=== PATIENT | female | born 1980 | race Caucasian/White ===

== ENCOUNTER 2023-06-23 07:44 | Inpatient (IN) ==
--- OUTSIDE RECORDS SUMMARY | 2023-06-23 08:03 | External Medical Summary | Summary of Care ---
Author Name Unknown Organization [facility] Address [address] [facility] [address] Phone [phone] Care Team Providers Care Planning Management It Specialist Name Role Phone Cristina Magaña MD Primary Care Provider [phone] Reason for Visit * Reason Comments Return Visit Encounter Details Date Type Department Care Team (Late st Contact Info) Description 06/19/2023 10:00 AM EST Office Visit Gynecology/Obstetric s Arun'elvira Tomas [address] [place] [address] Suni Mullins CRNP [address] [place] [address] [place] Non Stress Tests [place] [address] [place] [address] Antepartum multigravida of advanced maternal age*; Cystic fibrosis carrier; resulting from assisted reproductive technology, antepartum; Anxiety disorder affecting , antepartum; Low lying placenta, antepartum; High-risk in third trimester; History of delivery of macrosomal infant Allergies Active Allergy Reactions Criticality Noted Date Comments Codeine Nausea/vomiting 03/16/2018 sensitivity Pollen 03/16/2018 documented as of this encounter (statuses as of 06/19/2023) Medications Medication Sig Dispensed Refills Start Date End Date Status Robbins-3 Fatty Acids (FISH OIL) 1200 MG CPDRIndications:pren atal DHA 830mg Take by mouth. Indications: DHA 830mg 0 Active 28-0.8 MG Oral Tablet Take by mouth. 0 Active Loratadine 10 MG Oral Tablet (Claritin) Take by mouth. 0 Active Fluticasone Propionate 50 MCG/ACT Nasal Suspension Administer 1 [place] into nostril in the morning. 0 Active Escitalopram Oxalate 10 MG Oral Tablet (Lexapro) Take 2 Tablets by mouth in the morning. 0 Active CoQ10 200 MG Oral Capsule Take by mouth. 0 Active Magnesium 400 MG Oral Tablet Take by mouth. 0 Active B-2-400 400 MG Oral Capsule (Riboflavin) Take 1 Capsule by mouth in the morning. 0 Active Calcium Carbonate Antacid 500 MG Oral Tablet Chewable (Tums) Take 1 Tablet by mouth in the morning. 0 Active Breast PumpIndications:Caitlyn st feeding status of mother DARRIN 06/25/23, double electric pump, Z39.1 1 Each 0 05/14/2023 Active documented as of this encounter (statuses as of 06/19/2023) Active Problems Problem Noted Date Diagnosed Date depression 04/14/2023 Gastrointestinal hemorrhage 04/14/2023 Adjustment insomnia 04/14/2023 Malpresentation of fetus 04/14/2023 High-risk 03/10/2023 History of delivery of macrosomal infant 023 Overview: 1st child 9lb 12oz Common migraine without aura 02/26/2023 DEMETRIS (generalized anxiety disorder) 02/25/2023 Low lying placenta, antepartum 02/14/2023 Overview: 05/09/23 @ 33w2d, MFM: They strongly desire a vaginal delivery if possible, so we will plan to reassess for resolution (or at minimum improvement to a low-lying placenta over 1 cm from the os) in about 3 weeks. Given the minimal change in interval appearance since the last exam and in light of some of the logistical concerns with being from [facility], they would like to arrange for delivery planning in anticipation of needing a at 36-37 weeks. I called L&D and arranged for an AM at [facility] on 06/05/23 at 37w1d. If the placental location changes on follow-up exam, timing can be modified as needed. Last Assessment & Plan: She presents for reassessment of placental position secondary to AMA, IVF, and a previously noted placenta previa. We reviewed the results of today's ultrasound. The amniotic fluid amount appears normal. A BPP is 8/8. On transvaginal evaluation, the placenta is anterior and low-lying. The inferior placental margin measures over 1 cm from the internal os. We discussed the improvement in placenta position, now categorized as a low- lying placenta. If the placental edge is at 1cm or greater from internal os (without vaginal bleeding), we discussed that current evidence supports consideration for a trial labor and may continue to 41 weeks. We will plan to cancel the scheduled . We reviewed that most patients with a low-lying placenta are able to deliver vaginally, though there may be a slightly increased risk for bleeding complications that can lead to a . We reviewed some associated risks with a . They had some questions reg.arding delivery location. I recommended that they discuss this further with their OB providers, who will be more familiar with available resources locally Anxiety disorder affecting , antepartum 12/17/2022 Overview: Anxiety Managed with Lexapro 10 mg daily Reports a stable mood in . Denies any suicidal or homicidal ideation. Reports she has a good support system at home. Last Assessment & Plan: Continue lexapro, no concerns reported today. Cystic fibrosis carrier 11/25/2022 Overview: (this is a donor embryo) resulting from ass gripNote reproductive technology, antepartum 11/25/2022 Overview: IVF via donor embryo Egg donor age 35 Embryo PGT tested: euploid / normal NIPT: low risk MFM limited anatomy scan scheduled 02/14/2023 MFM anatomy to be scheduled Maternal Medicine (MFM) level II anatomy scan at 19-20 weeks. echocardiography by MFM at 22-24 weeks gestation for patients who have had IVF. MFM growth evaluation if indicated by other existing or maternal conditions. Recommend ultrasound for growth at 28-32 weeks. Recommend weekly NSTs to begin at 36 weeks. Consider delivery at 39 weeks. Last Assessment & Plan: CONSIDERATIONS: Assisted reproductive technology (ART) includes in vitro fertilization (IVF), intrauterine insemination (IUI), Gamete intrafallopian transfer (GIFT) and Zygote intrafallopian transfer (ZIFT). Discussed with patient that pregnancies after ART are associated with increased risk for spontaneous , ectopic (higher with ZIFT for history of tubal factor infertility), multiple gestation and low weight. Discussed with patient that even for law ART pregnancies, the relative risk of complications such as growth restriction, preeclampsia, prematurity, placental abruption, and mortality are increased, although clearly not independent of infertility itself. Neurodevelopmental outcomes of children conceived by ART appear to be normal. Risk of congenital abnormalities is increased by about 1/3 over the population baseline risk of 2-4%. There is approximately 1% of cardiac defects associated with pregnancies resulting from IVF. This is likely due to the fertilization process. RECOMMENDATIONS: Recommend Maternal Medicine (MFM) level II anatomy scan at 19-20 weeks. Recommend echocardiography by MFM at 22-24 weeks gestation for patients who have had IVF. Recommend MFM growth evaluation if indicated by other existing or maternal conditions. Recommend ultrasound for growth at 28-32 weeks. Recommend weekly NSTs to begin at 36 weeks. Consider delivery at 39 weeks. anxiety 11/25/2022 Last Assessment & Plan: States she had severe pp anxiety with son in 2019, tx'd with Lexapro 10mg Stopped prior to embryo transfer, plans to resume after 1st trimester. Chronic constipation 08/13/2022 Allergies 08/13/2022 Acute insomnia 08/13/2022 INFORMATION 08/11/2018 Overview: 08/11/2018 Tdap Vaccine administered per clinic protocol. Deya Anguiano RN Antepartum multigravida of advanced maternal age 1003/16/2018 Overview: Patient will be age 43 yo at delivery Donor embryo / age of donor 35 yo PGT: normal / euploid NIPT: Qnatal - low risk Genetic consult completed 12/04/2022 Last Assessment & Plan: PGT-A euploid, cffDNA low risk. Estimated Date of Delivery Comme nts Yes 06/25/2023 Based on Other B asis, embryo transfer 10-07-22 with DARRIN 06-25-23 documented as of this encounter (statuses as of 06/19/2023) Resolved Problems Problem Noted Date Diagnosed Date Resolved Date History of ectopic 09/10/2017 03/10/2023 Overview: August 2017 Had methotrexate x 3 Encounter for fertility planning 07/25/2017 07/25/2017 Encounter for assisted repro ductive fertility cycle 07/25/2017 11/01/2018 Overview: IUI, [place] Progesterone suppositories until 9weeks Same sex relationship, used sperm donor documented as of this encounter (statuses as of 06/19/2023) Immunizations Name Administration Dates Next Due RSV Vac., Bivalent, Perfusion F, Pf,0.5 Ml (Abry svo) 05/19/2023 Seasonal Influenza, PF, 6 M & above, IM , (FluLaval or Fluzone) 03/01/2023,03/16/2018 TDAP (age 10 and older)(Boostrix) 04/14/2023,05/2019 documented as of this encounter Social History Tobacco Use Types Packs/Day Years Used Date Smoking Tobacco: Never Smokeless Tobacco: Never Alcohol Use Standard Drinks/Week Comments No 0 (1 standard drink = 0.6 oz pur e alcohol) PHQ-2 Answer Date Recorded PHQ-2 Score 1 12/11/2018 Hunger Vital Sign Answer Date Recorded Within the past 12 months, y ou worried that your food would run out before you got the money to buy more. Never true 11/07/19 23 Within the past 12 months, t he food you bought just didn't last and you didn't have money to get more. Never true 11/06/2022 Dawson Depression Scale Answer Date Recorded [place] Depression Scale Total 4 05/19/2023 The thought of harming myself has occurred to me . Never 05/19/2023 Estimated Date of Delivery Comme nts Yes 06/25/2023 Based on Other B asis, embryo transfer 10-07-22 with DARRIN 06-25-23 Sex and Gender Information Value Date Recorded Sex Assigned at Female 11/06/2022 10:09 AM EDT Gender Identity Female 11/06/2022 10:09 AM EDT Sexual Orientation Queer 11/06/2022 10 :09 AM EDT Job Start Date Occupation Industry Not on file Not on file Not on file documented as of this encounter Last Filed Vital Signs Vital Sign Reading Time Taken Comments Blood Pressure 98/64 06/19/2023 9:35 AM EST Pulse - - Temperature - - Respiratory Rate - - Oxygen Saturation - - Inhaled Oxygen Concentration - - Weight 93.4 kg (206 lb) 06/19/2023 9:35 AM EST Height 177.8 cm (5' 10") 06/19/2023 9:35 AM EST Body Mass Index 29.56 06/19/2023 9:35 AM EST documented in this encounter Progress Notes * Julita Carlos LPN - 06/19/2023 9:35 AM EST 39w1d Pt would like cervix checked * Suni Mullins CRNP - 06/19/2023 9:31 AM EST ASSESSMENT assessment with Non-stress Test completed on 06/19/2023 at 39.1weeks gestation for indication of AMA, IVF heart baseline: 140 bpm Variability: Moderate Decelerations: absent Accelerations: present Contractions: None NST start time: 1032 NST stop time: 1056 NST strip reviewed, interpreted, and approved by OB provider, GENNARO Sandoval . NST strip stored in clinic storage file Has questions regarding IOL, explained this would need to be discussed at time of induction, as mayvary based on provider and pt situation. Some irregular contractions, no bleeding. IOL next week. GENNARO Sandoval documented in this encounter Plan of Treatment Upcoming Encounters Date Type Department Care Team (Late st Contact Info) Description 06/23/2023 7:30 AM EST Office Visit Non [facility], Operating Room, [facility] [address] [facility] [place] [address] Atul Wakefield MD [address] [place] [address] 07/14/2023 10:30 AM EST Telemedicine Gynecology/Obstetrics [facility] [address] [place] [address] Rylee Palacio CRNP [address] [place] [address] 08/04/2023 10:30 AM EST Office Visit Gynecology/Obstetrics [facility] [address] [place] [address] Rylee Palacio CRNP [address] [place] [address] Health Maintenance Due Date Last Done Comments Diabetes Screening 1978 Hepatitis B (1 of 3 - 3-dose series) 1978 Lipid Panel 1978 Mammogram 2018 Depression Screening 12/12/2019 12/11/2018 COVID-19 Vaccine ( season) 2023 09/09/2020, 08/19/2020 Cologuard 2023 Colonoscopy 2023 06/02/1999 Colorectal Cancer Screening 2023 Fecal Occult Blood Test 2023 Sigmoidoscopy 2023 Pap Smear 11/25/2025 11/25/2022, 03/16/2018 Cervical Cancer Screening 11/26/2027 HPV/Co-Test 11/26/2027 11/25/2022 DTaP,Tdap,and Td Vaccines (3 - Td or Tdap) 04/14/2033 04/14/2023, 08/11/2018 Influenza Vaccine (FLU shot) Completed , 03/16/2018, 03/02/2018, Additional history exists GARDASIL-HPV IMMUNIZATION SERIES Aged Out No longer eligible based on patient's age to complete this topic MENINGOCOCCAL (MENACTRA/MENVEO) Aged Out No longer eligible based on patient's age to complete this topic Pneumococcal Vaccine: Pediatrics (0 to 5 Years) and At-Risk Patients (6 to 64 Years) Aged Out No longer eligible based on patient's age to complete this topic documented as of this encounter Medical Devices Not on filedocumented as of this encounter Visit Diagnoses Diagnosis Antepartum multigravida of advanced maternal age- Primary Cystic fibrosis carrier Cystic fibrosis gene carrier resulting from assisted reproductive technology, antepartum Anxiety disorder affecting , antepartum Low lying placenta, antepartum High-risk in third trimester History of delivery of macrosomal infant documented in this encounter Advance Directives Latest Code Status on File Code Status Date Activated Date Inactivated Comments Full Code 10/31/2018 11:57 PM 11/03/2018 6:47 PM This o rder reflects the patients wishes and were consensually agreed upon. Care Teams Planning Management It Specialist Relationship Specialty Start Date End Date Cristina Magaña MD [address] [place] [id number] PCP - General Family Medicine 10/18/22 documented as of this encounter
--- OUTSIDE RECORDS SUMMARY | 2023-06-23 08:03 | External Medical Summary | Summary of Care ---
Author Name Unknown Organization [facility] Address [address] [place] [address] Phone [phone] Care Team Providers Care Blogs Manager Name Role Phone Cristina Magaña MD Primary Care Provider [phone] Reason for Visit * Reason Comments Return Visit Non Stress Test Encounter Details Date Type Department Care Team (Late st Contact Info) Description 06/12/2023 10:15 AM EST Office Visit Gynecology/Obstetric s Arun'elvira Tomas [address] [facility] [place] [address] Wandy Elder, [facility] [address] [place] [address] [place] Non Stress Tests [place] [address] [facility] [place] [address] Antepartum multigravida of advanced maternal age*; Cystic fibrosis carrier; resulting from assisted reproductive technology, antepartum; Anxiety disorder affecting , antepartum; Low lying placenta, antepartum; High-risk in third trimester; History of delivery of macrosomal infant Allergies Active Allergy Reactions Criticality Noted Date Comments Codeine Nausea/vomiting 03/16/2018 sensitivity Pollen 03/16/2018 documented as of this encounter (statuses as of 06/12/2023) Medications Medication Sig Dispensed Refills Start Date End Date Status [place]-3 Fatty Acids (FISH OIL) 1200 MG CPDRIndications:pren atal DHA 830mg Take by mouth. Indications: DHA 830mg 0 Active 28-0.8 MG Oral Tablet Take by mouth. 0 Active Loratadine 10 MG Oral Tablet (Claritin) Take by mouth. 0 Active Fluticasone Propionate 50 MCG/ACT Nasal Suspension Administer 1 [place] into nostril in the morning. 0 Active [...] mouth in the morning. 0 Active Breast PumpIndications:[place] st feeding status of mother DARRIN 06/25/23, double electric pump, Z39.1 1 Each 0 05/14/2023 Active documented as of this encounter (statuses as of 06/12/2023) Active Problems Problem Noted Date Diagnosed Date depression 04/14/2023 Gastrointestinal hemorrhage 04/14/2023 Adjustment insomnia 04/14/2023 Malpresentation of fetus 04/14/2023 High-risk 03/10/2023 History of delivery of macrosomal 023 Overview: 1st child 9lb 12oz Common [...] of the logistical concerns with being from [facility], they would like to arrange for delivery planning in anticipation of needing a at 36-37 weeks. I called L&D and arranged for an AM at [facility] on 06/05/23 at 37w1d. If the placental [...] is a donor embryo) resulting from ass [employer] reproductive technology, antepartum 11/25/2022 Overview: IVF via [...] as of this encounter (statuses as of 06/12/2023) Resolved Problems Problem Noted Date Diagnosed Date Resolved Date History of ectopic 09/10/2017 03/10/2023 Overview: August 2017 Had methotrexate x 3 Encounter for fertility planning 07/25/2017 07/25/2017 Encounter for assisted repro ductive fertility cycle 07/25/2017 11/01/2018 Overview: IUI, [place] Progesterone suppositories until 9weeks Same sex relationship, used sperm donor documented as of this encounter (statuses as of 06/12/2023) Immunizations Name Administration Dates Next Due RSV [...] money to get more. Never true 11/06/2022 [place] Depression Scale Answer Date Recorded [place] Depression Scale Total 4 05/19/2023 The thought [...] Sign Reading Time Taken Comments Blood Pressure 96/68 06/12/2023 9:41 AM EST Pulse - - Temperature - - Respiratory Rate - - Oxygen Saturation - - Inhaled Oxygen Concentration - - Weight 93.4 kg (206 lb) 06/12/2023 9:41 AM EST Height 177.8 cm (5' 10") 06/12/2023 9:41 AM EST Body Mass Index 29.56 06/12/2023 9:41 AM EST documented in this encounter Progress Notes * Wandy Elder CNM - 06/12/2023 10:11 AM EST RASHMI at 38w1d Feeling well with no concerns. Reports losing mucous this morning, no fluid leakage, no bleeding. Occasional BH, no RUC. Questions answered regarding induction. Aware of IOL. Hao's still shows vertex presentation today. Labor warning s/s reviewed. Patient has f/u in one week. ASSESSMENT assessment with Non-stress Test completed on 06/12/2023 at 38.1weeks gestation for indication of advanced maternal age and IVF conception heart baseline: 130 bpm Variability: Moderate Decelerations: absent Accelerations: present Contractions: None NST start time: 0945 NST stop time: 1008 NST strip reviewed, interpreted, and approved by OB provider, Wandy Elder CNM. NST strip stored in clinic storage file * Vicky Knapp LPN - 06/12/2023 9:56 AM EST 38w1d NST, RASHMI Was at L+D over the weekend with prodromal labor. Denies concerns today. documented in this encounter Plan of Treatment Upcoming Encounters Date Type Department Care Team (Late st Contact Info) Description 06/19/2023 10:00 AM EST Office Visit Gynecology/Obstetrics ArunOlgaelvira Tomas [address] [place] [address] Suni Mullins CRNP [address] [place] [address] [place] Tomas Stress Tests [place] [address] [place] [address] 06/23/2023 7:30 AM EST Office Visit Non [facility], Operating Room, [place] [address] [place] [facility] [place] [address] Atul Wakefield MD [address] [place] [address] 07/14/2023 10:30 AM EST Telemedicine Gynecology/Obstetrics Diasboo Tomas [address] [place] [address] Rylee Palacio CRNP [address] [place] [address] 08/04/2023 10:30 AM EST Office Visit Gynecology/Obstetrics Diasboo Tomas [address] [place] [address] Rylee Palacio CRNP [address] [place] [address] Health Maintenance Due Date Last Done Comments [...] third trimester History of delivery of macrosomal documented in this encounter Advance Directives Latest Code Status on File Code Status Date Activated Date Inactivated Comments Full Code 10/31/2018 11:57 PM 11/03/2018 6:47 PM This o rder reflects the patients wishes and were consensually agreed upon. Care Teams Blogs Manager Relationship Specialty Start Date End Date Cristina Magaña MD [address] [place] [address] PCP - General Family Medicine 10/18/22 documented as of this encounter
[2023-06-23] MEDS ORDERED: LIDOCAINE 1% LOCAL 20 ML VIAL INFIL PRN (08:04)
[2023-06-23] MEDS ORDERED: OXYTOCIN 30 UNITS/NSS 30 UNITS/500 ML BAG IV PRN ×3 (08:04→22:40)
[2023-06-23 08:41] LABS: Hematocrit (blood only) 38.1 % (37.0-47.0); Hemoglobin 12.8 g/dl (12.0-16.0); Mean Corpuscular Hemoglobin 32.2 pg (25.0-34.0); Mean Corpuscular Hgb Conc 33.6 g/dL (32.0-36.0); Mean Corpuscular Volume 95.7 fL (80.0-100.0); Mean Platelet Volume 10.8 fL (9.4-12.4); Platelet Count 153 K/uL (130-400); RDW Coefficient of Variation 13.2 % (11.5-14.5); RDW Standard Deviation 46.6 fL (36.4-46.3); Red Blood Count 3.98 M/uL (4.20-5.40); White Blood Count 8.89 K/ul (4.8-10.8)
--- NOTE | 2023-06-23 09:07 | History & Physical Report ---
Date of Service June 23, 2023 Assessment & Plan (1) AMA (advanced maternal age) multigravida 35+: (2) Conceived by in vitro fertilization: Plan: 43-year-old -0-1-1 at 39+ weeks presenting today for induction of labor at term, Vital signs stable afebrile, heart rate reassuring, GBS negative, Cervix favorable, Plan to admit, labs, oxytocin per protocol and then AROM when able, anticipate vaginal delivery, Discussed the findings and what to expect, All questions were answered. (3) Anxiety during in third trimester, antepartum: Admission and Anticipated Discharge Date Admission Date: June 23, 2023 History of Present Illness Primary Care Provider: Cristina Magaña MD Patient is a 43-year-old -0-1-1 at 39+ weeks who was scheduled for induction of labor at term. She denies regular contractions, leakage of fluid, vaginal bleeding, fever chills, abdominal pain, headaches or change in her vision. She reports good movements. Her has been complicated by, 1. IVF with embryo donor younger than 35 years, NIPT low risk, 2. Anxiety during , take escitalopram 20 mg a day, 3. History of low-lying placenta, cleared by MFM for vaginal delivery, GBS negative Allergies Allergy/AdvReac Type Severity Reaction Status Date / Time codeine AdvReac Nausea Verified 06/09/23 04:42 Home Medications Medication Instructions Recorded Confirmed Type calcium carbonate 500 mg calcium 1 mg PO DAILY 06/09/23 06/09/23 History (1,250 mg) chewable tablet coQ10 (ubiquinol) 200 mg capsule 200 mg PO DAILY 06/09/23 06/09/23 History escitalopram oxalate 20 mg tablet 20 mg PO DAILY 06/09/23 06/09/23 History (Lexapro) fluticasone furoate 50 50 mcg inhalation DAILY 06/09/23 06/09/23 History mcg/actuation blister powder for inhalation loratadine 10 mg chewable tablet 10 mg PO DAILY 06/09/23 06/09/23 History (Claritin) magnesium 500 mg tablet 400 mg PO DAILY migraines 06/09/23 06/09/23 History kplkibhh-[id number]-Yr-FA 1 mg 1 tab PO DAILY 06/09/23 06/09/23 History tablet riboflavin (vitamin B2) 400 mg PO DAILY 06/09/23 06/09/23 History Patient History Medical History Anxiety Social History Smoking Status: Never smoker Hx Alcohol Use: No Hx Substance Use: No Preferred Language: [place] Communication Ability: Effective Research Director Required: No Beliefs That Will Affect Care: None marital status: Current Living Situation: Spouse Current Living Situation Comment: son and Feels Safe at Home: Yes Safety Concerns: Feels Safe At This Time Assistive Devices: None VB NET PROGRAMMER History No history of STDs, no history of chlamydia, gonorrhea, herpes Review of Systems as per Subjective / HPI Physical Exam Constitutional: WD/WN, vitals as above well developed, well nourished and comfortable Gastrointestinal (Abdomen): normal bowel sounds, soft, nontender, no hepatosplenomegaly (Gravid) Genitourinary: normal external appearance OB Exam Abdomen: + vertex Manual OB Exam: + cervical dilation 3 cm (3-4), + cervical effacement 30% and + station high (-3, posterior) OB Exam Monitor Tracing: + external uterine monitor used and + category I Results & Data Vital Signs (Past 12 Hours) Vital Signs Temp Pulse Resp BP 06/23/23 08:27 36.4 C L 20 06/23/23 08:21 68 105/66 (1) AMA (advanced maternal age) multigravida 35+ Trimester: third trimester Qualified Code(s): O09.523 - Supervision of elderly multigravida, third trimester
[2023-06-23] MEDS: LACTATED RINGER'S 1,000 ML IV PRN ×3 (09:30→19:26)
--- NOTE | 2023-06-23 15:01 | Obstetrical Progress Note ---
Date of Service June 23, 2023 Assessment & Plan Admission and Anticipated Discharge Date Admission Date: June 23, 2023 Subjective Patient is reevaluated. Feels well, no complaints. Declined pain meds and doing well with breathing techniques. FHR categ I Bennett ctxs q-2-4 min, Oxytocin at 14 miu/ min VE: 4-5 cm/ 50%/ -2, AROM'ed meconium satined, light Continue to monitor Results & Data Vital Signs (Past 12 Hours) Vital Signs Temp Pulse Resp BP 06/23/23 13:38 59 L 06/23/23 13:38 107/62 06/23/23 13:25 70 06/23/23 13:25 102/55 L 06/23/23 12:29 62 06/23/23 12:29 105/61 06/23/23 11:36 87 06/23/23 11:36 98/61 L 06/23/23 10:38 71 06/23/23 10:38 99/58 L 06/23/23 09:32 63 06/23/23 09:32 104/68 06/23/23 08:27 36.4 C L 20 06/23/23 08:21 68 105/66
--- NOTE | 2023-06-23 16:29 | Obstetrical Progress Note ---
Date of Service June 23, 2023 Assessment & Plan Admission and Anticipated Discharge Date Admission Date: June 23, 2023 Subjective Patient is reevaluated. FHR had decels while standing VE: 5-6 cm/ 50%, -3, posterior She was placed on her side and pitocin was stopped, IVF bolus and nasal O2 were started. FHR recovered quickly to 130's, with good variability. Continue to monitor closely. Results & Data Vital Signs (Past 12 Hours) Vital Signs Temp Pulse Resp BP Pulse Ox 06/23/23 16:21 97 06/23/23 16:21 62 06/23/23 16:08 67 06/23/23 16:08 112/58 L 06/23/23 13:38 59 L 06/23/23 13:38 107/62 06/23/23 13:25 70 06/23/23 13:25 102/55 L 06/23/23 12:29 62 06/23/23 12:29 105/61 06/23/23 11:36 87 06/23/23 11:36 98/61 L 06/23/23 10:38 71 06/23/23 10:38 99/58 L 06/23/23 09:32 63 06/23/23 09:32 104/68 06/23/23 08:27 36.4 C L 20 06/23/23 08:21 68 105/66
[2023-06-23] MEDS ORDERED: fentaNYL citrate PF 100 MCG/2 ML VIAL ONE (17:49)
[2023-06-23] MEDS ORDERED: ePHEDrine sulfate 50 MG/ML AMP ONE (17:49)
[2023-06-23] MEDS ORDERED: SODIUM CHLORIDE 0.9% PF INJ 10 ML VIAL ONE (17:49)
[2023-06-23] MEDS ORDERED: fentANYL 2 MCG/ML BUPIVacaine 0.125%-NSS 100ML BAG ONE (17:49)
[2023-06-23] MEDS ORDERED: BUPIVACAINE 0.25% PF 30 ML VIAL ONE (17:49)
[2023-06-23] MEDS ORDERED: LIDOCAINE 2%/EPINEPHRINE 1:200,000 20 ML PF ONE (17:50)
--- NOTE | 2023-06-23 20:35 | Obstetrical Progress Note ---
Date of Service June 23, 2023 Assessment & Plan Admission and Anticipated Discharge Date Admission Date: June 23, 2023 Subjective Patient had epidural for pain and soon after was found to be fully dilated and pushed for about 50 minutes. Unable to bring head more than +2 FHR categ I Discussed continue with pushing vs labor Decided to labor down Continue to monitor closely. Results & Data Vital Signs (Past 12 Hours) Vital Signs Temp Pulse Resp BP Pulse Ox O2 Del Method 06/23/23 20:32 95 06/23/23 20:32 74 06/23/23 20:28 94 06/23/23 20:28 84 06/23/23 20:27 95 06/23/23 20:27 84 06/23/23 20:22 97 06/23/23 20:22 78 06/23/23 20:21 89 L 06/23/23 20:21 79 06/23/23 20:17 78 L 06/23/23 20:17 86 06/23/23 20:15 18 06/23/23 20:15 18 06/23/23 20:15 85 L 06/23/23 20:15 78 06/23/23 20:12 97 06/23/23 20:12 67 06/23/23 20:08 94 06/23/23 20:08 81 06/23/23 20:08 107/59 L 06/23/23 20:07 94 06/23/23 20:07 91 H 06/23/23 20:02 98 06/23/23 20:02 93 H 06/23/23 20:01 90 06/23/23 20:01 74 06/23/23 20:00 20 06/23/23 20:00 20 06/23/23 19:56 98 06/23/23 19:56 94 H 06/23/23 19:55 88 L 06/23/23 19:55 69 06/23/23 19:51 97 06/23/23 19:51 78 06/23/23 19:51 82 06/23/23 19:51 98/56 L 06/23/23 19:46 98 06/23/23 19:46 90 06/23/23 19:43 93 06/23/23 19:43 67 06/23/23 19:41 98 06/23/23 19:41 69 06/23/23 19:36 99 06/23/23 19:36 59 L 06/23/23 19:36 93/55 L 06/23/23 19:31 97 06/23/23 19:31 74 06/23/23 19:30 18 06/23/23 19:30 18 06/23/23 19:26 98 06/23/23 19:26 67 06/23/23 19:21 36.5 C 18 06/23/23 19:21 Room Air 06/23/23 19:21 98 06/23/23 19:21 66 06/23/23 19:21 91/55 L 06/23/23 19:20 18 06/23/23 19:20 36.5 C 18 06/23/23 19:19 66 06/23/23 19:19 94/53 L 06/23/23 19:17 80 06/23/23 19:17 98/55 L 06/23/23 19:16 98 06/23/23 19:16 68 06/23/23 19:15 73 06/23/23 19:15 89/54 L 06/23/23 19:13 81 06/23/23 19:13 97/56 L 06/23/23 19:11 99 06/23/23 19:11 67 06/23/23 19:11 77 06/23/23 19:11 101/55 L 06/23/23 19:10 82 06/23/23 19:10 103/54 L 06/23/23 19:07 68 06/23/23 19:07 97/57 L 06/23/23 19:06 98 06/23/23 19:06 76 06/23/23 19:05 83 06/23/23 19:05 102/60 06/23/23 19:03 63 06/23/23 19:03 100/58 L 06/23/23 19:01 99 06/23/23 19:01 68 06/23/23 19:01 95/52 L 06/23/23 18:59 65 06/23/23 18:59 101/55 L 06/23/23 18:57 63 06/23/23 18:57 100/61 06/23/23 18:56 97 06/23/23 18:56 67 06/23/23 18:55 67 06/23/23 18:55 94/55 L 06/23/23 18:53 72 06/23/23 18:53 94/52 L 06/23/23 18:51 97 06/23/23 18:51 65 06/23/23 18:51 95/51 L 06/23/23 18:49 70 06/23/23 18:49 91/53 L 06/23/23 18:47 66 06/23/23 18:47 94/50 L 06/23/23 18:46 98 06/23/23 18:46 66 06/23/23 18:45 70 06/23/23 18:45 92/54 L 06/23/23 18:43 65 06/23/23 18:43 96/53 L 06/23/23 18:41 96 06/23/23 18:41 70 06/23/23 18:41 71 06/23/23 18:41 104/55 L 06/23/23 18:36 96 06/23/23 18:36 66 06/23/23 18:31 97 06/23/23 18:31 65 06/23/23 18:26 97 06/23/23 18:26 75 06/23/23 18:21 98 06/23/23 18:21 73 06/23/23 18:16 96 06/23/23 18:16 69 06/23/23 18:11 98 06/23/23 18:11 65 06/23/23 18:06 99 06/23/23 18:06 75 06/23/23 18:01 97 06/23/23 18:01 66 06/23/23 17:56 98 06/23/23 17:56 64 06/23/23 17:51 97 06/23/23 17:51 65 06/23/23 17:46 98 06/23/23 17:46 68 06/23/23 17:45 71 06/23/23 17:45 109/72 06/23/23 17:41 99 06/23/23 17:41 77 06/23/23 17:36 99 06/23/23 17:36 76 06/23/23 17:31 97 06/23/23 17:31 69 06/23/23 17:26 97 06/23/23 17:26 71 06/23/23 17:21 97 06/23/23 17:21 67 01/22/24 17:16 96 06/23/23 17:16 67 06/23/23 17:11 96 06/23/23 17:11 65 06/23/23 17:06 96 06/23/23 17:06 67 06/23/23 17:01 97 06/23/23 17:01 67 06/23/23 16:56 98 06/23/23 16:56 66 06/23/23 16:51 99 06/23/23 16:51 68 06/23/23 16:46 98 06/23/23 16:46 64 06/23/23 16:41 99 06/23/23 16:41 63 06/23/23 16:36 99 06/23/23 16:36 64 06/23/23 16:31 99 06/23/23 16:31 63 06/23/23 16:30 36.7 C 20 06/23/23 16:26 99 06/23/23 16:26 73 06/23/23 16:21 97 06/23/23 16:21 62 06/23/23 16:08 67 06/23/23 16:08 112/58 L 06/23/23 13:38 59 L 06/23/23 13:38 107/62 06/23/23 13:25 70 06/23/23 13:25 102/55 L 06/23/23 12:29 36.7 C 20 06/23/23 12:29 62 06/23/23 12:29 105/61 06/23/23 11:36 87 06/23/23 11:36 98/61 L 06/23/23 10:38 71 06/23/23 10:38 99/58 L 06/23/23 09:32 63 06/23/23 09:32 104/68
[2023-06-23] MEDS ORDERED: CALCIUM CARBONATE 500 MG CHEWABLE TAB PO PRN (21:25)
[2023-06-23] MEDS ORDERED: DIPHTHER/TETAN/PERTUS Vaccine (Tdap, Adol/Adult) 0.5mL IM ONE (22:40)
[2023-06-23] MEDS ORDERED: ACETAMINOPHEN 325 MG TAB PO PRN (22:40)
[2023-06-23] MEDS ORDERED: MEASLES, MUMPS & RUBELLA VIRUS VACCINE (MMR) VIAL SQ ONE (22:40)
[2023-06-23] MEDS ORDERED: HYDROCORTISONE ACETATE 25 MG SUPP PR PRN (22:40)
[2023-06-23] MEDS ORDERED: BENZOCAINE 20% SPRY 85 APPLN/85 GM CAN EXT PRN (22:40)
--- NOTE | 2023-06-23 22:49 | Delivery Summary ---
Vaginal Delivery Summary Date of Service June 23, 2023 Vaginal Delivery Summary Patient was found to be fully dilated and labored down for about an hour.. She pushed through 3 contractions and delivered the head in direct OP position without difficulty and then shoulders with minimal traction. There was a loose nuchal cord and it was reduced. The baby was handed off to the mother. The cord was clampedx2 and cut. The vagina and perineum were checked and found to have 1st degree perineal laceration and clitoral lacerations. Those were repaired with 2/0 vicryl and 3/0 Vicryl on SH needle respectively. The placenta was delivered spontaneously as intact and complete. The uterus was explored and found to be empty. EBL was 200 ml. The fundus was firm The baby was a viable female infant, Apgars 6/8, the weight is pending The mother and the baby tolerated the procedure well. No complications happened and I was present during whole procedure.
[2023-06-23] MEDS: IBUPROFEN 600 MG TAB PO PRN (23:39)
[2023-06-24] MEDS: IBUPROFEN 600 MG TAB PO PRN ×3 (05:07→16:59)
[2023-06-24 07:11] LABS: Hematocrit (blood only) 36.2 % (37.0-47.0); Hemoglobin 11.9 g/dl (12.0-16.0); Mean Corpuscular Hemoglobin 31.7 pg (25.0-34.0); Mean Corpuscular Hgb Conc 32.9 g/dL (32.0-36.0); Mean Corpuscular Volume 96.5 fL (80.0-100.0); Mean Platelet Volume 10.7 fL (9.4-12.4); Platelet Count 135 K/uL (130-400); RDW Coefficient of Variation 13.3 % (11.5-14.5); RDW Standard Deviation 47.4 fL (36.4-46.3); Red Blood Count 3.75 M/uL (4.20-5.40); White Blood Count 15.54 K/ul (4.8-10.8)
[2023-06-24] MEDS ORDERED: PRENATAL VITAMIN 1 TAB PO SCH (08:00)
[2023-06-24] MEDS ORDERED: FERROUS SULFATE 325 MG TAB PO SCH (08:00)
--- NOTE | 2023-06-24 08:04 | Anesthesia Procedure Note ---
Date of Service June 24, 2023 Anesthesia Post Epidural Note Vital Signs Vital Signs: Temp Pulse Resp BP Pulse Ox O2 Del Method 36.7 C 63 16 103/63 96 Room Air 06/24/23 07:20 06/24/23 07:20 06/24/23 07:20 06/24/23 07:20 06/24/23 07:20 06/24/23 07:20 Pain Intensity Bilateral Abdomen: Pain Intensity: 1 Perineal: Pain Intensity: 2 Notes Mental Status: alert / awake / arousable and participated in evaluation Nausea / Vomiting: adequately controlled Pain: adequately controlled Airway Patency, RR, SpO2: stable & adequate BP & HR: stable & adequate Hydration State: stable & adequate Neuraxial Anesthesia: was administered and sensory block resolved Anesthetic Complications: no major complications apparent and Pt Satisfied with anesthetic care Epidural: Removed without complications and With tip intact
[2023-06-24] MEDS ORDERED: ESCITALOPRAM OXALATE 20 MG TAB PO SCH (09:00)
[2023-06-24] MEDS: DOCUSATE SODIUM 100 MG CAP PO SCH ×2 (09:11→19:42)
--- NOTE | 2023-06-24 09:38 | Obstetrical Progress Note ---
Date of Service June 24, 2023 Subjective Ambulation: ambulating normally Voiding: no voiding problems Passing Gas:: Yes Diet Tolerance:: regular diet Lochia:: Small Feeding Type:: breast feeding Current Pain Level(1-10): 0 doing well. plans for d/c today Physical Exam Constitutional WD/WN, vitals as above Gastrointestinal (Abdomen) Inspection/Auscultation: abdomen normal to inspection fundus firm. abdomen soft and non-tender Musculoskeletal Extremities: extremities normal to inspection Skin no rashes, warm and dry Neurologic patellar DTR's 2+ bilat, sensation intact Psychiatric A+Ox3, euthymic affect Results & Data Vital Signs (Past 12 Hours) Vital Signs Temp Pulse Pulse Resp BP BP Pulse Ox 06/24/23 07:20 36.7 C 63 16 103/63 96 06/24/23 05:00 36.4 C L 64 18 117/78 97 06/24/23 01:00 36.4 C L 78 18 101/66 95 06/24/23 00:40 18 06/24/23 00:33 66 100/57 L 06/24/23 00:18 69 105/58 L 06/24/23 00:05 18 06/24/23 00:03 71 110/66 06/23/23 23:48 73 06/23/23 23:48 106/62 06/23/23 23:35 18 06/23/23 23:33 71 06/23/23 23:33 103/61 06/23/23 23:25 18 06/23/23 23:18 74 06/23/23 23:18 108/64 06/23/23 23:05 18 06/23/23 23:03 66 06/23/23 23:03 109/64 06/23/23 22:50 18 06/23/23 22:35 18 06/23/23 22:33 112/72 06/23/23 22:32 97 06/23/23 22:32 66 06/23/23 22:27 96 06/23/23 22:27 71 06/23/23 22:22 97 06/23/23 22:22 66 06/23/23 22:22 69 06/23/23 22:22 119/64 06/23/23 22:17 97 06/23/23 22:17 69 06/23/23 22:16 93 06/23/23 22:16 101 H 06/23/23 22:12 96 06/23/23 22:12 75 06/23/23 22:11 90 06/23/23 22:11 78 06/23/23 22:08 85 06/23/23 22:08 99/57 L 06/23/23 22:07 96 06/23/23 22:07 85 06/23/23 22:06 89 L 06/23/23 22:06 76 06/23/23 22:02 96 06/23/23 22:02 70 06/23/23 22:00 18 06/23/23 22:00 18 06/23/23 22:00 18 06/23/23 22:00 18 06/23/23 21:57 96 06/23/23 21:57 67 06/23/23 21:52 96 06/23/23 21:52 67 06/23/23 21:51 62 06/23/23 21:51 103/63 06/23/23 21:47 96 06/23/23 21:47 68 06/23/23 21:42 96 06/23/23 21:42 64 O2 Del Method 06/24/23 07:20 Room Air 06/24/23 05:00 Room Air 06/24/23 01:00 Room Air 06/24/23 00:40 06/24/23 00:33 06/24/23 00:18 06/24/23 00:05 06/24/23 00:03 06/23/23 23:48 06/23/23 23:48 06/23/23 23:35 06/23/23 23:33 06/23/23 23:33 06/23/23 23:25 06/23/23 23:18 06/23/23 23:18 06/23/23 23:05 06/23/23 23:03 06/23/23 23:03 06/23/23 22:50 06/23/23 22:35 06/23/23 22:33 06/23/23 22:32 06/23/23 22:32 06/23/23 22:27 06/23/23 22:27 06/23/23 22:22 06/23/23 22:22 06/23/23 22:22 06/23/23 22:22 06/23/23 22:17 06/23/23 22:17 06/23/23 22:16 06/23/23 22:16 06/23/23 22:12 06/23/23 22:12 06/23/23 22:11 06/23/23 22:11 06/23/23 22:08 06/23/23 22:08 06/23/23 22:07 06/23/23 22:07 06/23/23 22:06 06/23/23 22:06 06/23/23 22:02 06/23/23 22:02 06/23/23 22:00 06/23/23 22:00 06/23/23 22:00 06/23/23 22:00 06/23/23 21:57 06/23/23 21:57 06/23/23 21:52 06/23/23 21:52 06/23/23 21:51 06/23/23 21:51 06/23/23 21:47 06/23/23 21:47 06/23/23 21:42 06/23/23 21:42 Laboratory Results 06/23/23 06/23/23 06/24/23 08:17 22:16 06:53 WBC 8.89 15.54 H RBC 3.98 L 3.75 L Hgb 12.8 11.9 L Hct 38.1 36.2 L MCV 95.7 96.5 MCH 32.2 31.7 MCHC 33.6 32.9 RDW Std Deviation 46.6 H 47.4 H RDW Coeff of Elias 13.2 13.3 Plt Count 153 135 MPV 10.8 10.7 Cord ABG pH Cancelled Cord ABG pCO2 Cancelled Cord ABG pO2 Cancelled Cord ABG HCO3 Cancelled Cord ABG Base Excess Cancelled Cord ABG O2 Sat Cancelled Barometric Pressure Cancelled Blood Gas Comments Cancelled
[2023-06-24] MEDS ORDERED: bisacodyL 5 MG TABEC PO SCH (20:00)
[2023-06-25] MEDS ORDERED: bisacodyL 10 MG SUPP PR PRN
--- NOTE | 2023-06-25 06:40 | Anesthesiology Consultation ---
Date of Service June 25, 2023 Assessment & Plan Chart Review Chart Review: Patient NOT seen in Pre Admission Testing and Acceptable Risk for Labor Epidural Consults Requested none ASA ASA2 Proposed Anesthesia Anesthesia Type: Labor Epidural Risk / Benefits Reviewed With: PT / POA / Parent / Guardian, Accepts Plan and Informed Consent Obtained History Height/Weight Height: 5 ft 10 in Weight: 93.44 kg Allergies Allergy/AdvReac Type Severity Reaction Status Date / Time codeine AdvReac Nausea Verified 06/23/23 10:04 Medications Home Medications Medication Instructions Recorded Confirmed Last Taken escitalopram oxalate 20 mg tablet 20 mg PO DAILY 06/09/23 06/09/23 06/08/23 (Lexapro) fluticasone furoate 50 50 mcg inhalation DAILY 06/09/23 06/09/23 Unknown mcg/actuation blister powder for inhalation loratadine 10 mg chewable tablet 10 mg PO DAILY 06/09/23 06/09/23 Unknown (Claritin) [id number] 1 mg 1 tab PO DAILY 06/09/23 06/09/23 06/08/23 tablet ibuprofen 600 mg tablet 600 mg PO Q6H PRN fever or pain 06/24/23 Unknown #30 tabs Past Medical History Medical History Anxiety Exercise / Class Metabolic Activity II 4-5 Yardwork/Stairs/Walk up hill Past Anesthesia History No Hx of Anesthesia Complications and No Family Hx of Anesthesia Complications History of PONV No Hx of PONV and No Hx of Motion Sickness Social History Smoking Status: Never smoker Hx Alcohol Use: No Hx Substance Use: No Physical Exam Vital Signs Last Vital Signs Temp 36.7 C 06/24/23 20:11 Pulse 71 06/24/23 20:11 Resp 20 06/24/23 20:11 BP 102/64 06/24/23 20:11 Pulse Ox 96 06/24/23 20:11 O2 Del Method Room Air 06/24/23 19:45 ENMT Mouth: no dentition abnormality Thyromental Distance: > or= 3.5 Finger Breadths Mallampati Class: II Neck normal visual inspection Respiratory normal respiratory effort Auscultation: lungs clear to auscultation bilaterally Cardiovascular Rate/Rhythm: regular rate and regular rhythm Psychiatric Orientation: alert Testing Laboratory Results 06/24/23 06:53
== END 2023-06-25 | disposition home or self-care (01) | DRG 807 ==
LOC: 4S1 07:44 → 4E2 06-24 00:50